=== PATIENT | female | born 1960 | race Hispanic/Latino ===

== ENCOUNTER 2023-07-24 17:01 | Emergency (ER) | payer MEDICARE ==
[~2023-07-24] VITALS: Ht 157.5 cm; Wt 90.7 kg
[2023-07-24 17:02] VITALS: O2SAT 100
[2023-07-24 17:27] LABS: BILIRUBIN,URINE NEGATIVE (NEGATIVE); CLARITY,URINE CLEAR (CLEAR); COLOR,URINE YELLOW (YELLOW); GLUCOSE, URINE NEGATIVE (NEGATIVE); KETONES,URINE NEGATIVE (NEGATIVE); LEUKOCYTE ESTERASE ,URINE NEGATIVE (NEGATIVE); NITRITE,URINE NEGATIVE (NEGATIVE); PH,URINE 5 (5 - 7); PROTEIN,URINE DIPSTICK NEGATIVE (NEGATIVE); URINE UROBILINOGEN 0.2 mg/dL (0.2 - 1)
[2023-07-24 17:41] LABS: BACTERIA,URINE FEW /HPF; EPITHELIAL CELLS,URINE MODERATE /LPF; RBC,URINE 0-5 /HPF (0-5); WBC,URINE (MAN) 0-5 /HPF (0-5)
[2023-07-24] MEDS ORDERED: METRONIDAZOLE500 MG PO (17:58)
[2023-07-24] MEDS ORDERED: ESTROGEL50 GM VG (18:01)
== END 2023-07-24 18:20 | disposition home or self-care (01) ==
LOC: ER 17:25
DX: L29.8 Other pruritus (principal); N76.0 Acute vaginitis; I10 Essential (primary) hypertension; F32.A Depression, unspecified; Z87.19 Personal history of other diseases of the digestive system
CPT/HCPCS: 81001; 87086; 99283